=== PATIENT | female | born 1975 | race Caucasian/White ===

== ENCOUNTER 2016-10-10 07:38 | Inpatient (IN) | payer BC ==
[~2016-10-10] VITALS: Ht 167.6 cm; Wt 129.3 kg
[~2016-10-10 07:38] MED LIST: EXCEDRINE MIGRAINE; LRT5 PO; MIDRIN
[2016-10-10] MEDS ORDERED: DEXTROSE 50% 50 ML SYR IV PRN (09:30)
[2016-10-10] MEDS ORDERED: PHARMACY GLYCEMIC MGMT CONSULT PRN (09:30)
[2016-10-10] MEDS ORDERED: DINOPROSTONE 10 MG INSERT PV ONE (09:30)
[2016-10-10] MEDS ORDERED: SODIUM CHLORIDE 0.9% 1000ML 1,000 ML IV SCH (09:30)
[2016-10-10 09:48] VITALS: Ht 167.6 cm; Wt 129.3 kg
[2016-10-10] MEDS ORDERED: INSU70IN2 SC (09:52)
[2016-10-10] MEDS ORDERED: INSPMPNVLG SQ (09:52)
[2016-10-10] MEDS ORDERED: MONT1TAB3 PO (09:53)
[2016-10-10] MEDS ORDERED: CETI10TA84 PO (09:53)
[2016-10-10] MEDS ORDERED: PRENTAB26 PO (09:53)
[2016-10-10] MEDS ORDERED: GLUCOSE 40% GEL 15 GM TUBE PO PRN (10:30)
[2016-10-10] MEDS ORDERED: GLUCOSE 10 TABS/TUBE PO PRN (10:30)
[2016-10-10] MEDS ORDERED: GLUCAGON FOR INJ 1 MG VIAL SQ PRN (10:30)
[2016-10-10 10:37] LABS: HEMATOCRIT 34.7 % (37-47); MEAN CELL VOLUME 91.3 fL (80-100); MEAN CORPUSCULAR HEMOGLOBIN 30.5 pg (25-34); MEAN CORPUSCULAR HGB CONC 33.4 g/dl (32-36); MEAN PLATELET VOLUME 9.3 fL (7.4-10.4); PLATELET COUNT 177 K/uL (130-400); WHITE BLOOD COUNT 8.45 K/uL (4.8-10.8)
[2016-10-10] MEDS ORDERED: NVLNI SQ (10:45)
[2016-10-10] MEDS ORDERED: NVLGI/PEN SQ (10:45)
[2016-10-10] MEDS: INSULIN REGULAR 250 UNITS in SODIUM CHLORIDE 0.9% 250ML 250 ML IV PRN (10:46)
[2016-10-10] MEDS: DEXTROSE 5% 1000ML 1,000 ML IV SCH ×2 (10:47→20:49)
--- NOTE | 2016-10-10 10:59 | HISTORY & PHYSICAL EXAMINATION ---
DATE OF ADMISSION: 10/10/2016 CHIEF COMPLAINT: at 39 weeks, history of gestational diabetes class A2, here for induction of labor. HISTORY OF PRESENT ILLNESS: This is a 41-year-old G2, P1, with due date of 10/15/2016, making her at 39 weeks and 2 days. The patient is here for induction of labor because her has been complicated with gestational diabetes type A2. The patient is on insulin. The patient's has been complicated by gestational diabetes. She was initially started on glyburide and then converted to insulin. She did see maternal medicine during her and their recommendation has been to induce patient after 39 weeks gestation. On arrival to labor and delivery, she has no shortness of breath, no chills, no fever. heart rate is category 1. Bedside ultrasound shows cephalic presentation. Pelvic exam shows cervix is fingertip, thick, and posterior, -3. Estimated weight by Hussein's is between 8 and 9 pounds. PAST MEDICAL HISTORY: 1. History of pancreatitis. 2. History of kidney stones. 3. History of migraines. 4. History of anxiety. 5. History of depression. 6. History of ovarian cyst. 7. History of morbid obesity. PAST SURGICAL HISTORY: 1. History of ankle surgery. 2. Tonsillectomy. 3. Dental surgery. SOCIAL HISTORY: The patient denies tobacco, drug or alcohol use. FAMILY HISTORY: Noncontributory. ALLERGIES: No known drug allergies. MEDICATIONS: 1. The patient is on insulin. 2. vitamins. MASTER CARPENTER HISTORY: The patient delivered a live infant male in 03/2001 at 40+ weeks. weighed 9 pounds 8 ounces. was delivered vaginally without any significant complications. PHYSICAL EXAMINATION: GENERAL: Well-developed, well-nourished obese white female, in no acute distress. HEART: S1, S2, regular rhythm and rate. LUNGS: Clear to auscultation bilaterally. ABDOMEN: Gravid. Bedside ultrasound shows cephalic presentation. PELVIS: Fingertip, thick, -3 station. EXTREMITIES: No cyanosis, clubbing or edema. ASSESSMENT AND PLAN: A 41-year-old G2, P1, at 39+ weeks. has been complicated by gestational diabetes class A2. The patient is on insulin. The patient is here for induction of labor because of gestational diabetes. Plan is to admit the patient, start insulin drip, and anticipate vaginal delivery.
[2016-10-10 11:03] LABS: BUN/CREATININE RATIO 18.8 (10-20); CALCIUM 8.7 mg/dl (8.5-10.1); CREATININE 0.67 mg/dl (0.60-1.20); POTASSIUM 3.9 mmol/L (3.5-5.1)
[2016-10-10 11:06] LABS: ALB/GLOB RATIO 0.6 (0.9-2)
--- NOTE | 2016-10-10 15:48 | Pharmacy Progress Note ---
Glycemic Control Intl Consult Date of Service Oct 10, 2016. Scope Glycemic Pharmacist consulted by Dr Hill on 10/10/16 for glycemic control and to write orders per [facility] inpatient glycemic control protocol Objective Weight (Kilograms): 129.000 Accuchecks BSG (last 24hrs): Test 10/10/16 09:35 10/10/16 10:17 10/10/16 11:45 10/10/16 12:44 Bedside Glucose 83 mg/dl (70-90) 70 mg/dl (70-90) 76 mg/dl (70-90) Random Glucose 69 mg/dl (70-99) Test 10/10/16 13:43 10/10/16 14:43 Bedside Glucose 80 mg/dl (70-90) 81 mg/dl (70-90) Laboratory Data (last 24hrs) Test 10/10/16 10:17 Anion Gap 9.0 mmol/L BUN/Creatinine Ratio 18.8 Blood Urea Nitrogen 13 mg/dl Creatinine 0.67 mg/dl Potassium Level 3.9 mmol/L Sodium Level 141 mmol/L White Blood Count 8.45 K/uL Recent Pertinent Medications Outpatient Anti-diabetic Regimen: * NPH 58 units qam, 39 units qpm, Novolog 38 unit w/breakfast, 30 units w/supper * A1c = unknown The patient is currently receiving: * Basal insulin: regular insulin infusion 0.5 units/hr, rate adjusted per gestational diabetes protocol * Correctional Insulin: regular insulin infusion adjusted per gestational diabetes protocol * Prandial insulin: none * Oral Agents: none Risk Factors for Insulin Resistance: * IVF: NSS or D5W per gestational diabetes protocol * Diet: npo Assessment & Plan ASSESSMENT: * ADA & AACE recommend a goal blood sugar range 140-180 mg/dl for the majority of critically ill & non-critically ill patients. However, more stringent targets may be selected in individual cases. * 41 yo female, no previous history of diabetes. Now and labor is being induced due to gestational diabetes. BSG's have been low today so we need to optimize blood sugars and decrease the risk of hypoglycemia. Note that the patient may be at higher risk of developing type 2 diabetes in the future. PLAN FOR INPATIENT GLYCEMIC CONTROL: * Starting IV insulin infusion per gestational diabetes protocol along with IV fluids * Goal Range greater than 80 mg/dl * Please note that the plan above was derived based on current level of insulin resistance and hospital stress. These recommendations are appropriate for inpatient admission only. Plan of care upon discharge will need to be reassessed to avoid potential outpatient hypo/hyperglycemia. Thank you.
[2016-10-10] MEDS ORDERED: MISOPROSTOLTAB 50 MCG TAB PV ONE (23:30)
[2016-10-11] MEDS ORDERED: LACTATED RINGER'S 1000ML 500 ML IV PRN (07:23)
[2016-10-11] MEDS ORDERED: OXYTOCIN 30 UNITS/500ML NSS IV PRN (07:30)
[2016-10-11] MEDS: LACTATED RINGER'S 1000ML 1,000 ML IV SCH (08:36)
[2016-10-11] MEDS: DEXTROSE 5% 1000ML 1,000 ML IV SCH ×2 (09:53→14:00)
[2016-10-11] MEDS: INSULIN REGULAR 250 UNITS in SODIUM CHLORIDE 0.9% 250ML 250 ML IV PRN (14:01)
--- NOTE | 2016-10-11 14:38 | Progress Note ---
Progress Note Date of Service Oct 11, 2016. Progress Note cervix finger tip/50/-3 FHT Cat 1 Will continue oxytocin
[2016-10-11] MEDS ORDERED: INSULIN REGULAR 250 UNITS in SODIUM CHLORIDE 0.9% 250ML 250 ML IV SCH (14:45)
--- NOTE | 2016-10-11 15:44 | Pharmacy Progress Note ---
Glycemic Control: Progress Nt Date of Service Oct 11, 2016. Scope Glycemic Pharmacist consulted for glycemic control and to write orders per [facility] inpatient glycemic control protocol. Objective Accuchecks BSG (last 24hrs): Test 10/10/16 15:44 10/10/16 16:46 10/10/16 17:46 10/10/16 18:44 Bedside Glucose 80 mg/dl (70-90) 76 mg/dl (70-90) 82 mg/dl (70-90) 79 mg/dl (70-90) Test 10/10/16 19:45 10/10/16 20:44 10/10/16 21:42 10/10/16 22:46 Bedside Glucose 88 mg/dl (70-90) 79 mg/dl (70-90) 85 mg/dl (70-90) 85 mg/dl (70-90) Test 10/10/16 23:47 10/11/16 00:45 10/11/16 01:49 10/11/16 02:47 Bedside Glucose 101 mg/dl (70-90) 131 mg/dl (70-90) 119 mg/dl (70-90) 116 mg/dl (70-90) Test 10/11/16 03:44 10/11/16 04:47 10/11/16 05:52 10/11/16 06:50 Bedside Glucose 103 mg/dl (70-90) 100 mg/dl (70-90) 110 mg/dl (70-90) 104 mg/dl (70-90) Test 10/11/16 07:51 10/11/16 08:52 10/11/16 09:56 10/11/16 10:50 Bedside Glucose 106 mg/dl (70-90) 115 mg/dl (70-90) 114 mg/dl (70-90) 106 mg/dl (70-90) Test 10/11/16 11:51 10/11/16 12:49 10/11/16 13:53 10/11/16 14:52 Bedside Glucose 98 mg/dl (70-90) 97 mg/dl (70-90) 133 mg/dl (70-90) 77 mg/dl (70-90) HbA1c: Due to increased RBC turnover, A1C is lower in normal than in normal non- women. The A1c target in is 6-6.5% Patient does not have A1c documented in chart. Recent Pertinent Medications The patient is currently receiving: * IV Insulin infusion + Rotating Fluids of NSS/D5W to maintain euglycemia Risk Factors for Insulin Resistance: * Assessment & Plan ASSESSMENT: * IV insulin infusion + rotating fluids are being used to maintain BSG 70-110mg/ dl * Most likely could have utilized frequent (Q2-4hr) BSG checks + SQ insulin regimen during the early latent phase of induction/labor. * Important to keep BSG in 70-110mg/dl range to help prevent hypoglycemia * Labor is progressing, IV Pitocin is being titrated. Once patient is in the active phase of labor D5W infusion is necessary to help meet the glucose demands of intense exercise/increased energy requirements while NPO. PLAN FOR INPATIENT GLYCEMIC CONTROL: * Continue IV insulin infusion per protocol + D5W/NSS per protocol * May need to switch to 0.45% NSS to decrease sodium load. Will allow provider to make this switch if needed. * D/C IV insulin infusion after delivery of placenta * Monitor BSG x1 in recovery after insulin infusion d/c (i.e. 2 hrs after delivery of placenta), then Q6hrs/ACHS x 24 hours, then QAM * BSG goal range 160mg/dl or below after delivery of placenta * Pt may need reduced outpatient insulin doses post- - will re-assess and dose based on BSG trends. * Start NovoLog per Scale ACHS if BSG > 160mg/dl * Goal range 80-160mg/dl * CF = 35mg/dl/unit * CR = 1 unit for every 12g CHO consumed * Please note that the plan above was derived based on current level of insulin resistance and hospital stress. These recommendations are appropriate for inpatient admission only. Plan of care upon discharge will need to be reassessed to avoid potential outpatient hypo/hyperglycemia. Thank you.
--- NOTE | 2016-10-11 18:55 | Progress Note ---
Progress Note Date of Service Oct 11, 2016. Progress Note cervix unchanged at finger tip. Will stop insulin drip and oxytocin and allow to eat. Plan on placing Cervidil tonight for ripening of cervix. [facility] CAT 1.
[2016-10-11] MEDS ORDERED: DINOPROSTONE 10 MG INSERT PV ONE (19:00)
--- NOTE | 2016-10-11 19:34 | Progress Note ---
Progress Note Date of Service Oct 11, 2016. Progress Note Cervidil 10 mg placed in posterior fornix of vagina. [facility] Cat 1.
[2016-10-12] MEDS ORDERED: LACTATED RINGER'S 1000ML 500 ML IV PRN ×3 (08:08→15:27)
[2016-10-12] MEDS ORDERED: OXYTOCIN 30 UNITS/500ML NSS IV PRN ×3 (08:15→18:00)
[2016-10-12] MEDS ORDERED: INSULIN ASPART 100 UNITS/ML 3 ML PEN SC SCH (10:00)
[2016-10-12] MEDS ORDERED: EpHEDrine SULFATE INJ 50 MG/ML AMP ONE (13:07)
[2016-10-12] MEDS ORDERED: BUPIVACAINE 0.25% 30 ML VIAL ONE ×2 (13:07→14:16)
[2016-10-12] MEDS ORDERED: FENTANYL CITRATE INJ 50 MCG/1 ML 2 ML VIAL ONE ×2 (13:07→14:17)
[2016-10-12] MEDS ORDERED: FENTANYL 2MCG/ML ROPIV 1.25MG/ML 100ML BAG EPI ONE (13:08)
[2016-10-12] MEDS ORDERED: BUTORPHANOL TARTRATE 1 MG/ML VIAL ONE (13:50)
[2016-10-12] MEDS ORDERED: BUTORPHANOL TARTRATE 1 MG/ML VIAL IV PRN (14:00)
[2016-10-12] MEDS: LACTATED RINGER'S 1000ML 1,000 ML IV SCH (14:04)
[2016-10-12] MEDS ORDERED: NALOXONE HCL INJ 1 MG in SODIUM CHLORIDE 0.9% 1000ML 1,000 ML IV PRN (14:41)
[2016-10-12] MEDS ORDERED: NALBUPHINE HCL INJ 10 MG/ML AMP IV PRN (14:45)
[2016-10-12] MEDS ORDERED: NALOXONE HCL INJ 0.4 MG/1 ML VIAL/CARP IV PRN (14:45)
[2016-10-12] MEDS ORDERED: FENTANYL 2MCG/ML ROPIV 1.25MG/ML 100ML BAG EPI PRN (14:45)
[2016-10-12] MEDS ORDERED: EpHEDrine SULFATE INJ 50 MG/ML AMP IV PRN (14:45)
[2016-10-12] MEDS ORDERED: DiphenhydrAMINE HCL 50 MG/ML VIAL IV PRN (14:45)
--- NOTE | 2016-10-12 15:49 | Pharmacy Progress Note ---
Glycemic Control: Progress Nt Date of Service Oct 12, 2016. Scope Glycemic Pharmacist consulted for glycemic control and to write orders per [facility] inpatient glycemic control protocol. Objective Accuchecks BSG (last 24hrs): Test 10/11/16 15:48 10/11/16 16:51 10/11/16 17:54 10/11/16 18:56 Bedside Glucose 88 mg/dl (70-90) 88 mg/dl (70-90) 87 mg/dl (70-90) 85 mg/dl (70-90) Test 10/11/16 23:02 10/12/16 08:34 10/12/16 10:26 10/12/16 12:31 Bedside Glucose 125 mg/dl (70-90) 101 mg/dl (70-90) 89 mg/dl (70-90) 89 mg/dl (70-90) Test 10/12/16 14:15 Bedside Glucose 86 mg/dl (70-90) Assessment & Plan ASSESSMENT/PLAN: * IV insulin infusion + rotating fluids protocol d/c last evening by provider d/ t lack of progress of labor * Discussed case with Dr Miller (calender wind up helper) * Pt ate dinner last evening --> likely has enough glycogen stores to maintain NPO w/o D5W IVF * Continue IVF labor protocol consistent with non-diabetic * Check BSGs Q2hrs --> administer SQ insulin to maintain BSG in the 80-110mg/ dl range. * Please note that the plan above was derived based on current level of insulin resistance and hospital stress. These recommendations are appropriate for inpatient admission only. Plan of care upon discharge will need to be reassessed to avoid potential outpatient hypo/hyperglycemia. Thank you.
[2016-10-12] MEDS ORDERED: ACETAMINOPHEN/CODEINE 300/30MG TAB PO PRN ×2 (18:00)
[2016-10-12] MEDS ORDERED: BENZOCAINE 20% AER SPR 82.5 GM CAN EXT PRN (18:00)
[2016-10-12] MEDS ORDERED: LANOLIN OINT EXT PRN ×2 (18:00)
[2016-10-12] MEDS ORDERED: DIPHTHERIA/TETANUS/PERTUSSIS 0.5 ML SYR/VIAL IM. ONE (18:00)
[2016-10-12] MEDS ORDERED: SUPERCREAM 0.870 % 15GM JAR EXT PRN (18:00)
[2016-10-12] MEDS ORDERED: OXYCODONE/ACETAMINOPHEN 5-325 TAB PO PRN (18:00)
[2016-10-12] MEDS ORDERED: HYDROCORTISONE ACETATE 25 MG SUPP PR PRN (18:00)
[2016-10-12] MEDS ORDERED: ACETAMINOPHEN 325 MG TAB PO PRN (18:00)
--- NOTE | 2016-10-12 18:23 | Anesthesia Procedure Note ---
Anesthesia Epidural Removal Nt Date & Time Oct 12, 2016 at 18:24 Vital Signs Pain Intensity: 0.0 Notes Mental Status: alert / awake / arousable, participated in evaluation Nausea / Vomiting: adequately controlled Pain: adequately controlled Airway Patency, RR, SpO2: stable & adequate BP & HR: stable & adequate Hydration State: stable & adequate Neuraxial Anesthesia: was administered Anesthetic Complications: no major complications apparent, pt satisfied with anesthetic care Epidural: removed without complications, with tip intact
[2016-10-12 21:15] VITALS: BP 146/67; PULSE 116; TEMP 37.3; O2SAT 97
--- NOTE | 2016-10-12 21:18 | DELIVERY SUMMARY ---
DATE OF OPERATION: 10/12/2016 TIME OF DELIVERY: 17:39 DELIVERY OF PLACENTA: 17:42 DELIVERY NOTE: The patient is a 41-year-old 2, para 1 at 39 weeks and 4 days gestation; who was admitted to labor and delivery for induction of labor secondary to type 2 diabetes. The patient had artificial rupture of membranes at 11:19 a.m. on 10/12/2016 with clear amniotic fluid noted. She received an epidural for anesthesia. She reached complete dilation at 16:39. The patient pushed to delivery at 17:39. She delivered a viable female infant to an intact perineum in the left occiput anterior position. The baby was placed on patient's abdomen. Cord was clamped x2 and cut. Apgars were 8 at 1 minute and 9 at 5 minutes. Please see nursing notes for further baby assessment. Cord blood was then obtained and an intact placenta with 3-vessel cord was delivered at 17:42. Oxytocin infusion was then begun. The lower uterine segment and vagina were cleared of any blood clots and debris. Exploration of the perineum noted a first degree vaginal laceration which was repaired with 2-0 Vicryl suture in continuous running fashion. Excellent hemostasis was noted. No other lacerations were seen. Estimated blood loss was 250 mL. One sharp was removed from the operative field. All sponge and instrument counts were found to be correct x2. Both patient and baby tolerated the delivery well and were in recovery with stable vital signs. I attest to the content of the Intraoperative Record and any orders documented therein. Any exceptio ns are noted below.
[2016-10-12] MEDS: MONTELUKAST SOD 10 MG TAB PO SCH (21:30)
[2016-10-12] MEDS: DOCUSATE SODIUM 100 MG CAP PO SCH (21:31)
[2016-10-12 23:45] VITALS: BP 104/70; PULSE 97; TEMP 36.9; O2SAT 95
[2016-10-13 04:20] VITALS: BP 111/73; PULSE 86; TEMP 36.5; O2SAT 96
[2016-10-13] MEDS: IBUPROFEN 600 MG TAB PO PRN ×3 (04:41→16:37)
[2016-10-13 06:09] LABS: HEMATOCRIT 34.3 % (37-47)
[2016-10-13 07:30] VITALS: BP 111/70; PULSE 77; TEMP 36.6
[2016-10-13] MEDS ORDERED: INSULIN ASPART 100 UNITS/ML 3 ML PEN SC SCH (07:30)
[2016-10-13] MEDS: DOCUSATE SODIUM 100 MG CAP PO SCH ×2 (08:26→19:47)
[2016-10-13] MEDS: FERROUS SULFATE 325 MG TAB PO SCH (08:26)
[2016-10-13] MEDS: PRENATAL VITAMIN TAB PO SCH (08:26)
[2016-10-13] MEDS: CETIRIZINE HCL 10 MG TAB PO SCH (08:26)
--- NOTE | 2016-10-13 09:38 | OB/GYN Progress Note ---
DENTAL ASSISTING INSTRUCTOR Progress Note Date of Service Oct 13, 2016. Subjective conversation w/ patient, physical exam Ambulation: ambulating normally Voiding: no voiding problems Passing Gas: Yes Diet Tolerance: Regular Diet Lochia: Moderate Feeding Type: Breast Feeding Pain: 2/10 Notes: Doing well, no concerns. Pain well controlled. Lochia decreasing. Objective Vital Signs Date Time Temp Pulse Resp B/P Pulse Ox O2 Delivery O2 Flow Rate FiO2 10/13/16 07:30 36.6 77 18 111/70 Room Air 10/13/16 07:30 Room Air 10/13/16 04:20 36.5 86 18 111/73 96 Room Air 10/12/16 23:45 95 Room Air 10/12/16 23:45 36.9 97 18 104/70 95 Room Air 10/12/16 21:15 Room Air 10/12/16 21:15 37.3 116 16 146/67 97 Room Air Physical Exam General Appearance: WELL-APPEARING Respiratory/Chest: chest non-tender, lungs clear Cardiovascular: regular rate, rhythm Abdomen: normal bowel sounds, soft Fundus: Firm Extremities: normal range of motion, non-tender, no calf tenderness Laboratory Results Last 24 Hours Test 10/12/16 10:26 10/12/16 12:31 10/12/16 14:15 10/12/16 16:35 Bedside Glucose 89 mg/dl 89 mg/dl 86 mg/dl 92 mg/dl Test 10/12/16 19:34 10/13/16 05:51 Bedside Glucose 167 mg/dl Hemoglobin 11.4 g/dL Hematocrit 34.3 % Assessment and Plan Post- Day Number: 1 Continue Routine Care: -Continue routine care -Anticipate D/C home tomorrow
[2016-10-13 12:05] VITALS: BP 119/72; PULSE 89; TEMP 36.5
[2016-10-13 16:35] VITALS: BP 112/74; PULSE 93; TEMP 37
[2016-10-13] MEDS ORDERED: BISACODYL 5 MG TABEC PO SCH (20:00)
[2016-10-13] MEDS: MONTELUKAST SOD 10 MG TAB PO SCH (20:50)
[2016-10-14 00:08] VITALS: BP 111/65; PULSE 87; TEMP 36.8
[2016-10-14 06:35] LABS: HEMATOCRIT 35.9 % (37-47); MEAN CELL VOLUME 94.7 fL (80-100); MEAN CORPUSCULAR HEMOGLOBIN 30.9 pg (25-34); MEAN CORPUSCULAR HGB CONC 32.6 g/dl (32-36); MEAN PLATELET VOLUME 9.7 fL (7.4-10.4); PLATELET COUNT 194 K/uL (130-400); RED BLOOD COUNT 3.79 M/uL (4.2-5.4); WHITE BLOOD COUNT 10.18 K/uL (4.8-10.8)
[2016-10-14] MEDS ORDERED: BISACODYL 10 MG SUPP PR PRN (07:00)
[2016-10-14] MEDS: DOCUSATE SODIUM 100 MG CAP PO SCH (07:56)
[2016-10-14] MEDS: CETIRIZINE HCL 10 MG TAB PO SCH (07:56)
[2016-10-14] MEDS: FERROUS SULFATE 325 MG TAB PO SCH (07:56)
[2016-10-14] MEDS: PRENATAL VITAMIN TAB PO SCH (07:56)
[2016-10-14 08:15] VITALS: BP 119/80; PULSE 98; TEMP 36.6; O2SAT 97
--- NOTE | 2016-10-14 08:31 | OB/GYN Progress Note ---
RUBBER CALENDER HELPER Progress Note Date of Service Oct 14, 2016. Subjective conversation w/ patient, physical exam Ambulation: ambulating normally Voiding: no voiding problems Passing Gas: Yes Diet Tolerance: Regular Diet Lochia: Moderate Feeding Type: Breast Feeding Review of Systems Constitutional: No chills, No fatigue, No fever, No problem reported, No sweats , No weakness, No weight loss Respiratory: No cough, No dyspnea at rest, No dyspnea on exertion, No hemoptysis, No problem reported, No shortness of breath, No sputum, No wheezing Cardiac: No PND, No chest pain, No claudication, No edema, No orthopnea, No palpitations, No problem reported Breast: No breast lump, No breast pain, No change in shape, No nipple discharge , No problem reported, No see HPI Abdomen: No GI bleeding, No constipation, No diarrhea, No nausea, No pain, No problem reported, No vomiting Female : No abnormal vaginal bleeding, No dysuria, No hematuria, No incontinence, No problem reported, No see HPI, No urinary frequency, No vaginal discharge Objective Vital Signs Date Time Temp Pulse Resp B/P Pulse Ox O2 Delivery O2 Flow Rate FiO2 10/14/16 00:11 Room Air 10/14/16 00:08 36.8 87 18 111/65 Room Air 10/13/16 16:35 Room Air 10/13/16 16:35 37.0 93 18 112/74 Room Air 10/13/16 12:05 36.5 89 20 119/72 Room Air Physical Exam Respiratory/Chest: chest non-tender, lungs clear, normal breath sounds, no respiratory distress, no accessory muscle use Cardiovascular: regular rate, rhythm, no edema, no gallop, no JVD, no murmur Abdomen: normal bowel sounds, non tender, soft, no organomegaly, no pulsatile mass Fundus: Firm Incision Description: Clean, Dry & Intact Extremities: normal range of motion, non-tender, normal inspection, no pedal edema, no calf tenderness Laboratory Results Last 24 Hours Test 10/14/16 05:51 White Blood Count 10.18 K/uL Red Blood Count 3.79 M/uL Hemoglobin 11.7 g/dL Hematocrit 35.9 % Mean Corpuscular Volume 94.7 fL Mean Corpuscular Hemoglobin 30.9 pg Mean Corpuscular Hemoglobin Concent 32.6 g/dl RDW Standard Deviation 49.8 fL RDW Coefficient of Variation 14.5 % Platelet Count 194 K/uL Mean Platelet Volume 9.7 fL Assessment and Plan Post- Day Number: 2 Continue Routine Care: VD day #2 pt doing well d/c home with instructions
[2016-10-14] MEDS ORDERED: MTR600X PO (08:33)
--- NOTE | 2016-10-14 08:34 | Discharge Instructions ---
Discharge Instructions Date of Service Oct 14, 2016. Admission Reason for Admission: Induction Discharge Discharge Diagnosis / Problem: Discharge Goals Goal(s): Routine recovery after delivery Activity Recommendations Activity Limitations: as noted below Lifting Limitations: gradually increase as tolerated ACTIVITY RECOMMENDATIONS: * Gradual return to full activity over the next 2-3 weeks. * No lifting - nothing heavier than baby over the next 2-3 weeks. * Do not engage in vigorous exercise, sexual activity or sports until cleared by your physician. * Do not drive or operate any motorized equipment until cleared by your physician. * You may shower/bathe daily. BREAST CARE: If you are not breast feeding: * Wear a supportive bra 24 hours a day for one to two weeks. * Avoid stimulating your breasts and nipples as much as possible during the first few weeks after delivery. * When taking a shower, have the warm water hit your back, not breasts. * When your breasts feel full, apply ice packs. Usually three to four times a day helps ease the discomfort. * Take a mild pain medication (Tylenol/Motrin) when you are uncomfortable. If breast feeding: * Use breast milk to lubricate nipples. Lansinoh cream may be used for sore nipples. You do not need to remove cream prior to breast feeding. If using a different brand of cream, check the label for directions regarding removal of cream prior to nursing. * Wear a supportive bra. * If having problems with breasts or breast feeding, call a knowledge management consultant or your health care provider. EPISIOTOMY CARE: After delivery, if you have an episiotomy (stitches), the following steps will ease discomfort and aid healing. * For the first 24 hours after delivery, place ice packs next to your episiotomy to help reduce swelling. * After the first 24 hour-period, sitz baths, either portable or in the tub, are suggested. A shower with a shower arm sprayed over the episiotomy may be comforting. * Deanna care should be done after each voiding and bowel movement. Squirt warm water from a plastic bottle over the perineum (region of the body between the anus and urinary opening) and pat dry. * Use Dermoplast to ease discomfort. Shake container. Alice directly over the episiotomy. * Place a Tucks on a clean sanitary pad next to your episiotomy. OVER THE COUNTER MEDICATION: * For discomfort or pain, you may use Acetaminophen (Tylenol), Ibuprofen (Advil ), or Naproxen (Aleve) following the package directions. * For constipation you may use Colace following the package directions. SPECIAL CARE INSTRUCTIONS: When you are discharged from the hospital, it is important for you to follow the instructions listed below: * During the first week at home, you should be able to care for yourself and your baby. In addition, the usual light household activities are encouraged. * Limit your activities to the way you feel. Do not try to clean the house or move furniture. Be sensible. * If you actively engage in sports and have done so up until the time of your delivery, you may resume these activities as soon as you feel able. This may take up to one month or even longer. Use good judgment. * Continue to take your vitamins for at least six weeks after the of your baby. * Your diet need not be limited unless you were on a special diet before your delivery. Breast-feeding mothers need around 2500 calories per day and at least 64-80 ounces of fluid per day (8 to 10 glasses). * You should eat foods from the four major food groups. Crash diets or fad diets are to be avoided. Eating lean meats, fresh fruits and vegetables, low-fat dairy products, high fiber foods and a regular exercise program, will help you get back to your pre- weight without putting your health at risk. * Constipation is sometimes a problem after delivery. Take a mild laxative as needed. If breast feeding, Milk of Magnesia is acceptable to use. You may use a suppository or Fleets enema if no episiotomy. * A daily shower or tub bath is suggested. Be sure to thoroughly and gently dry the perineum. * A bloody vaginal discharge will usually continue until around four weeks post . A small amount of bleeding may continue for as long as six weeks. Vaginal discharge changes from the bright red bleeding after delivery to pink then brownish and finally yellowish-pink before becoming white and disappearing. * Bleeding may increase with activity. Your first period may come in 4-8 weeks. If you are breast feeding, your period may be delayed even longer. * [place] (sex) can begin whenever both you and your partner feel comfortable and do not have any form of genital infection. It is recommended that you wait until after your return appointment and discuss with your physician. If you have questions, please talk to your health care practitioner. A condom should be used to prevent infection and . * Foreplay, gentle intercourse and lubrication is very important the first several times to prevent pain. A water-based lubricant such as K-Y jelly or Astroglide may be used. * Tampons may be used six weeks after delivery. * Douching should be avoided for 6 weeks after delivery. * If you have RH negative blood and your baby is RH positive, you will receive RHOGAM by injection prior to discharge. The nurse will give you a card to keep with you that has the date and place that you received RHOGAM after delivery. * During your care, you had a Rubella screen done to check for the presence of rubella antibodies in your blood. If your test was negative, you will receive a Rubella vaccine prior to discharge. This vaccine may cause a fever, soreness at the injection site and flu-like symptoms. If these symptoms persist, notify your health care practitioner. is not advised for three months after a Rubella vaccine. There is a higher chance of having a baby with defects if conceived within three months of getting the vaccine. * If you were discharged 24 hours from delivery or before 48 hours: Visiting nurses will come to your home 48 hours after discharge to assess you and your baby. The visiting nurse will meet with you while you are in the hospital to arrange a time and get directions to your home. * Verbalizes understanding of car seat law as reviewed with patient nursing. * Car Seat hand-out given and reviewed with patient by nursing. * Shaken baby information reviewed with patient by nursing. Call you doctor if: * Heavy bleeding (saturating several pads an hour) or passing clots the size of your fist. * A fever >101 degrees F (38.3 degrees C) on two occasions four hours apart and/or chills. * Unusual pain in the pelvic or vaginal areas. * "Baby Blues" lasting longer than two weeks. If you have any questions or concerns, call your health care practitioner at . FOLLOW-UP VISIT: * Please call the office at to schedule a 6 week examination. It is important you keep this appointment. * It is important for you to make arrangements for either yearly or twice yearly check-ups thereafter. . Current Hospital Diet Patient's current hospital diet: Regular OB Diet Discharge Diet Recommended Diet: Regular Diet Pending Studies Studies pending at discharge: no Medical Emergencies . Who to Call and When: Medical Emergencies: If at any time you feel your situation is an emergency, please call 911 immediately. . Non-Emergent Contact Non-Emergency issues call your: Specialist . . "Provider Documentation" section prepared by Blake Hill. VTE Core Measure Inpt VTE Proph given/why not?: Treatment not indicated
[2016-10-14 09:06] VITALS: BP_DIAS 80; PULSE 98; TEMP 36.6
[2017-01-22] MEDS ORDERED: LEVO-371 PO (13:56)
[2017-01-31] MEDS ORDERED: OXYC-57 PO (08:08)
[2017-01-31] MEDS ORDERED: IBUP600T44 PO (08:08)
== END 2016-10-14 12:29 | disposition home or self-care (01) | DRG 775 ==
LOC: C.LD 07:38 → MERGE 07:38 → C.OBG 10-12 21:21
PROVIDERS: ADMIT Obstetrics & Gynecology; ATTEND Obstetrics & Gynecology
PROC: 0HQ9XZZ Repair Perineum Skin, External Approach (ICD-10-PCS; principal; 2016-10-12)
PROC: 10E0XZZ Delivery of Products of Conception, External Approach (ICD-10-PCS; principal; 2016-10-12)
PROC: 3E033VJ Introduction of Other Hormone into Peripheral Vein, Percutaneous Approach (ICD-10-PCS; principal; 2016-10-12)
PROC: 10907ZC Drainage of Amniotic Fluid, Therapeutic from Products of Conception, Via Natural or Artificial Opening (ICD-10-PCS; principal; 2016-10-12)
PROC: 3E0P7GC Introduction of Other Therapeutic Substance into Female Reproductive, Via Natural or Artificial Opening (ICD-10-PCS; principal; 2016-10-12)
DX: O24.429 Gestational diabetes mellitus in childbirth, unspecified control (principal); Z68.42 Body mass index [BMI] 45.0-49.9, adult; Z37.0 Single live birth; O99.214 Obesity complicating childbirth; E66.9 Obesity, unspecified; Z3A.39 39 weeks gestation of pregnancy; O70.0 First degree perineal laceration during delivery; Z79.899 Other long term (current) drug therapy; Z79.4 Long term (current) use of insulin

== ENCOUNTER 2017-01-31 05:20 | Day surgery (SDC) | payer BC, OTHER ==
[2017-01-22 13:56] VITALS: BMI 42.0
--- NOTE | 2017-01-22 14:11 | PAT Medication Instructions ---
Service Date Jan 22, 2017. Current Home Medication List Levocetirizine Dihydrochloride (Xyzal), 1 TAB PO QAM Montelukast Sodium (Singulair), 1 TAB PO HS Medication Instructions For Your Scheduled Surgery - Hold the following medications the morning of surgery: Levocetirizine Dihydrochloride (Xyzal), 1 TAB PO QAM - Take the following medications as scheduled the night before surgery: Montelukast Sodium (Singulair), 1 TAB PO HS Nothing to eat or drink after midnight If you have any questions please call us at [phone] or [phone] or [phone]
[2017-01-22 14:46] LABS: BASO % 0.4 %; BASO ABS # 0.03 K/uL (0-0.2); COMPLETE YES; EOS % 1.6 %; HEMATOCRIT 38.1 % (37-47); IG% 0.1 %; LYMPH % 35.6 %; LYMPH ABS # 2.62 K/uL (1.2-3.4); MEAN CELL VOLUME 95.3 fL (80-100); MEAN CORPUSCULAR HEMOGLOBIN 32.8 pg (25-34); MEAN CORPUSCULAR HGB CONC 34.4 g/dl (32-36); MEAN PLATELET VOLUME 9.2 fL (7.4-10.4); MONO % 6.7 %; NEUT % 55.6 %; PLATELET COUNT 218 K/uL (130-400); WHITE BLOOD COUNT 7.36 K/uL (4.8-10.8)
[~2017-01-31] VITALS: Ht 167.6 cm; Wt 117.8 kg
[~2017-01-31 05:20] MED LIST changes: -EXCEDRINE MIGRAINE; +LEVO-371 PO; -LRT5 PO; -MIDRIN; +MONT1TAB3 PO
[2017-01-31 05:48] VITALS: BP 109/67; PULSE 77; TEMP 36.7; O2SAT 97; Ht 167.6 cm; Wt 117.8 kg
[2017-01-31] MEDS ORDERED: CEFAZOLIN 3000 MG/65 ML D5W 50 ML IV SCH (06:00)
[2017-01-31] MEDS ORDERED: LACTATED RINGER'S 1000ML 1,000 ML IV SCH ×2 (06:00)
[2017-01-31] MEDS ORDERED: ROCURONIUM BROMIDE 10 MG/ML 5 ML VIAL ONE (06:35)
[2017-01-31] MEDS ORDERED: NEOSTIGMINE METHYLSULFATE 5 MG/5 ML SYR ONE (06:35)
[2017-01-31] MEDS ORDERED: DEXAMETHASONE SOD INJ 4 MG/ML VIAL ONE (06:35)
[2017-01-31] MEDS ORDERED: PROPOFOL IV EMULSION 10 MG/ML 20 ML VIAL IV ONE (06:35)
[2017-01-31] MEDS ORDERED: ONDANSETRON INJ 2 MG/ML 2 ML VIAL ONE ×2 (06:35→07:23)
[2017-01-31] MEDS ORDERED: LIDOCAINE HCL 2% 2 ML VIAL (20MG/ML) ONE (06:35)
[2017-01-31] MEDS ORDERED: MIDAZOLAM HCL 1 MG/ML 2ML VIAL ONE (06:35)
[2017-01-31] MEDS ORDERED: FENTANYL CITRATE INJ 50 MCG/1 ML 2 ML VIAL ONE ×2 (06:35→07:36)
[2017-01-31] MEDS ORDERED: GLYCOPYRROLATE INJ 0.2 MG/ML VIAL ONE ×2 (06:35→07:23)
--- NOTE | 2017-01-31 06:47 | History & Physical Bridge Note ---
H&P Re-Evaluation Bridge Note: I have examined the patient, reviewed the History & Physical and in the interval since the performance of the History & Physical I have noted the following changes of clinical significance: No changes noted
[2017-01-31] MEDS ORDERED: BUPIVACAINE 0.5 % 5 MG/1 ML MPF 30ML VIAL ONE (06:49)
[2017-01-31] MEDS ORDERED: SCOPOLAMINE 1.5 MG TDSY TD ONE ×2 (06:51→07:00)
[2017-01-31] MEDS ORDERED: SCOPOLAMINE 1.5 MG TDSY TD SCH ×2 (07:00)
[2017-01-31] MEDS ORDERED: CHECK SCOPOLAMINE PATCH PLACEMENT SCH (08:00)
[2017-01-31] MEDS ORDERED: SODIUM CHLORIDE 0.9% 1000ML 1,000 ML IV SCH (08:06)
[2017-01-31] MEDS ORDERED: IBUP600T44 PO (08:08)
[2017-01-31] MEDS ORDERED: OXYC-57 PO (08:08)
--- NOTE | 2017-01-31 08:09 | Discharge Instructions ---
Discharge Instructions Date of Service Jan 31, 2017. Visit Reason for Visit: Requesting Permanent Sterilization Discharge Discharge Diagnosis / Problem: S/p Laparoscopic bilateral tubal ligation Discharge Goals Goal(s): Decrease discomfort Activity Recommendations Activity Limitations: per Instructions/Follow-up section Anesthesia . Post Anesthesia Instructions: If you have had General Anesthesia or IV Sedation: * Do not drive today. * Resume driving when surgeon permits. * Do not make important decisions or sign legal documents today. * Call surgeon for: 1. Temperature elevations greater than 101 degrees F. 2. Uncontrollable pain. 3. Excessive bleeding. 4. Persistent nausea and vomiting. 5. Medication intolerance (nausea, vomiting or rash). * For nausea and vomiting use only clear liquids such as: tea, soda, bouillon until nausea subsides, then gradually increase diet as tolerated. * If you have any concerns or questions, call your surgeon's office. If physician is unavailable and it is an emergency, call 911 or go to the nearest emergency room. . Instructions / Follow-Up Instructions / Follow-Up SPECIAL CARE INSTRUCTIONS: * Check temperature twice daily for one week. Report any elevation over 100.4 degrees Fahrenheit (38.0 degrees Celsius). * Call office in the next few days for return appointment. * You may experience some vaginal spotting and/or bleeding, this is normal for one or two weeks and should not alarm you. * Post-operative discomfort may consist of a sore throat, a "bloated" feeling and pain in the shoulders. These are normal symptoms which usually only last for two or three days. FOLLOW UP VISIT: Keep any scheduled doctor appointments. Diet Recommendations Recommended Home Diet: no limitations, resume previous diet Procedures Procedures Performed: Bilateral Laparoscopic Tubal Sterilization Pending Studies Studies pending at discharge: no Medical Emergencies . Who to Call and When: Medical Emergencies: If at any time you feel your situation is an emergency, please call 911 immediately. . Non-Emergent Contact Non-Emergency issues call your: Primary Care Provider, Electrical Manufacturing Engineer . . "Provider Documentation" section prepared by Guero Todd. . [place] Drug Monitoring Program Search Results: no issues identified
--- NOTE | 2017-01-31 08:11 | [facility] Post Operative Brief Note ---
Immediate Operative Summary Operative Date Jan 31, 2017. Pre-Operative Diagnosis Desire for permanent sterilization Post-Operative Diagnosis Same as preoperative diagnosis Procedure(s) Performed Bilateral Laparoscopic Tubal Sterilization Surgeon Dr. Guero Todd Aircraft Time Clerk Surgeon(s) None Estimated Blood Loss 5 mL Findings On laparoscopic exam uterus, bilateral tubes and ovaries were grossly normal. No intraabdominal or pelvic pathology noted. Bilateral fallopian tubes were followed out to their fimbriated ends, grasped at midpoint with the Kleppingers and fulgurated at multiple points throughout their course. Patient tolerated the procedure well. Fluids (cc crystalloids) 1000 Specimens No pathology specimens per surgeon Drains None Anesthesia General Complication(s) None Disposition Recovery Room / PACU
[2017-01-31] MEDS ORDERED: FENTANYL CITRATE INJ 50 MCG/1 ML 2 ML VIAL IV PRN (08:15)
[2017-01-31] MEDS ORDERED: OXYCODONE/ACETAMINOPHEN 5-325 TAB PO PRN ×2 (08:15)
[2017-01-31] MEDS ORDERED: HYDROmorphone INJ 1 MG/ML SYR IV PRN (08:15)
[2017-01-31] MEDS ORDERED: EpHEDrine SULFATE INJ 50 MG/ML AMP IV PRN (08:15)
[2017-01-31] MEDS ORDERED: ONDANSETRON INJ 2 MG/ML 2 ML VIAL IV PRN ×2 (08:15)
[2017-01-31] MEDS ORDERED: ATROPINE SULFATE 0.1 MG/ML 5ML SYR IV PRN (08:15)
[2017-01-31] MEDS ORDERED: KETOROLAC TROMETHAMINE 30 MG/ML VIAL IV. PRN (08:15)
--- NOTE | 2017-01-31 08:25 | [facility] Operative Report ---
Operative Report Operative Date Jan 31, 2017. Pre-Operative Diagnosis Desire for permanent sterilization Post-Operative Diagnosis Same as preoperative diagnosis Procedure(s) Performed Bilateral Laparoscopic Tubal Sterilization Surgeon Dr. Guero Todd Sheet Cutting Operator Surgeon(s) None Estimated Blood Loss 5 mL Findings On laparoscopic exam uterus, bilateral tubes and ovaries were grossly normal. No intraabdominal or pelvic pathology noted. Bilateral fallopian tubes were followed out to their fimbriated ends, grasped at midpoint with the Kleppingers and fulgurated at multiple points throughout their course. Patient tolerated the procedure well. Fluids 1000 Specimens No pathology specimens per surgeon Drains None Anesthesia General Complication(s) None Disposition Recovery Room / PACU Indications Patient is a 41 y/o who has completed bearing children and is requesting permanent sterilization. She declined LARC and OCP's. Risks, benefits and alternatives were discussed and informed consent was signed. Description of Procedure Patient was taken to the OR where general anesthesia was administered. Once anesthesia was found to be adequate the patient was placed in the dorsal lithotomy position and was prepped and draped a manner appropriate for the procedure. The bladder was then drained of clear urine. A weighted speculum was then placed into the vagina and the anterior lip of the cervix was grasped with an Allis clamp. A [employer] uterine manipulator was then placed within the uterus in an anteverted fashion. The patient was then readied for the laparoscopic portion of the procedure. Attention was directed towards the umbilicus where 1/ 2 Marcaine was injected subumbilically and a 11 mm skin incision was made in a vertical fashion below the umbilicus. A Veress needle was then placed within the abdominal cavity and normal saline was injected with no fecal content aspirated. A pneumoperitoneum was then created. The Veress needle was then removed and an 11 mm trocar was then placed within the abdominal cavity under direct laparoscopic visualization. The patient was then placed in a Trendelenburg position and the bowel was displaced superiorly away from the pelvis. A second 5 mm skin incision was made two finger breaths above the pubic symphysis in a horizontal fashion at midpoint. A 5 mm trocar was then placed within the abdomen again under direct laparoscopic visualization. A thorough exam of the abdomen and pelvis was performed with the above noted findings. Attention was then directed towards the right fallopian tube which was followed out to its fimbriated end, grasped at midpoint with the kleppingers and fulgurated at multiple points throughout its course. The same was done on the left fallopian tube. Once bilateral tubal ligation was complete the procedure was found to be complete and all instruments were removed from the abdomen. As much CO2 gas was allowed to percolate through the open cannulas. The cannulas were then removed. The fascia of the umbilical incision was closed with 0 Vicryl suture in a figure of eight fashion. Both skin incisions were closed with 4-0 Monocryl in a subcuticular fashion. Excellent hemostasis noted. The [employer] uterine manipulator was then removed. All sponges instrument and needle counts were found to be correct x 2. The patient tolerated the procedure well and was sent to recovery with stable vital signs. I attest to the content of the Intraoperative Record and any orders documented therein. Any exceptions are noted below.
[2017-01-31] MEDS ORDERED: KETOROLAC TROMETHAMINE 30 MG/ML VIAL ONE (08:38)
--- NOTE | 2017-01-31 09:01 | Anesthesiology Progress Note ---
Anesthesia Post Op Note Date & Time Jan 31, 2017 at 09:01 Vital Signs Pain Intensity: 3 Vital Signs Past 12 Hours Date Time Temp Pulse Resp B/P (MAP) Pulse Ox O2 Delivery O2 Flow Rate FiO2 01/31/17 08:55 36.1 60 15 114/66 93 Room Air 01/31/17 08:45 67 15 112/61 92 Room Air 01/31/17 08:35 64 13 109/78 96 Oxymask 8 01/31/17 08:25 70 20 124/66 97 Oxymask 10 01/31/17 08:17 36.6 77 15 129/65 95 Oxymask 10 01/31/17 05:48 36.7 77 18 109/67 (81) 97 Room Air Notes Mental Status: alert / awake / arousable, participated in evaluation Pt Amnestic to Procedure: Yes Nausea / Vomiting: adequately controlled Pain: adequately controlled Airway Patency, RR, SpO2: stable & adequate BP & HR: stable & adequate Hydration State: stable & adequate Anesthetic Complications: no major complications apparent
[2017-01-31 09:05] VITALS: BP 107/70; PULSE 61; TEMP 36.5; O2SAT 96
[2017-01-31 09:35] VITALS: BP 104/61; PULSE 63; TEMP 36.4; O2SAT 93
[2017-01-31 10:05] VITALS: BP 101/64; PULSE 72; TEMP 36.4; O2SAT 94
== END 2017-01-31 10:28 | disposition home or self-care (01) ==
LOC: C.ACU 05:20
PROVIDERS: ATTEND Obstetrics & Gynecology
DX: Z30.2 Encounter for sterilization (principal); Z87.891 Personal history of nicotine dependence; Z79.899 Other long term (current) drug therapy